=== PATIENT | female | born 1975 | race Caucasian/White ===

== ENCOUNTER 2021-11-11 11:26 | Emergency (ER) | payer BC, SELFPAY ==
--- NOTE | ~2021-11-11 | XR_ITS ---
EXAMINATION: XR chest 1V portable INDICATION: Chest and back pain, COVID 19 positive TECHNIQUE: Portable AP chest at 1221 hours COMPARISON: None available FINDINGS: The lungs are free of acute opacities. No pleural effusion or pneumothorax. The cardiomedia stinal silhouette is normal. The visualized bones and soft tissues are unremarkable. IMPRESSION: 1. No acute cardiopulmonary abnormality. Reviewed, dictated and finalized at location B.
[2021-11-11 11:26] VITALS: BP 148/91; PULSE 88; RESP 16; TEMP 36.3; O2SAT 95
--- NOTE | 2021-11-11 11:49 | ECG_ITS ---
Measurements Intervals [place] Rate: 65 P: 23 RI: 174 QRS: -3 QRSD: 88 T: 17 QT: 381 QTc: 398 Interpretive Statements SINUS RHYTHM NORMAL ECG NO PREVIOUS ECG AVAILABLE FOR COMPARISON Electronically Signed On 11-11-2021 16:12:15 CDT by Bowen Helm M.D.
[2021-11-11 12:00] VITALS: BP 147/99; PULSE 79; RESP 16; O2SAT 98
--- NOTE | 2021-11-11 12:07 | ED.GENADULT ---
HPI - General Adult General Chief complaint: Unspecified Stated complaint: covid+/ left sided flank pain Time Seen by Provider: 11/11/21 11:35 History of Present Illness HPI narrative: 46-year-old female history of Opal's and recently diagnosed with COVID, presents emergency room with mid upper back pain that radiates into her chest. Patient denies any shortness of breath or difficulty breathing. Denies any alleviating or aggravating factors. Denies fever Related Data Home Medications Medication Instructions Recorded Confirmed alprazolam 0.5 mg tablet mg 11/11/21 11/11/21 atorvastatin 20 mg tablet mg 11/11/21 clindamycin 1.2 %(1 %base)-benzoyl topical 11/11/21 peroxide 3.75 % topical gel in pump (Onexton) liothyronine 25 mcg tablet mcg 11/11/21 paroxetine HCl 10 mg tablet mg PO 11/11/21 spironolactone 50 mg tablet mg 11/11/21 tazarotene 0.045 % lotion (Arazlo) topical 11/11/21 Allergies Allergy/AdvReac Type Severity Reaction Status Date / Time latex Allergy Unknown rash Verified 11/11/21 11:32 AMOXICILLIN TRIHYDRATE Allergy Unknown STOMACH Uncoded 11/11/21 11:32 PAIN/VOMITING POTASSIUM CLAVULANATE Allergy Unknown STOMACH Uncoded 11/11/21 11:32 PAIN/VOMITING Review of Systems Review of Systems: CONSTITUTIONAL: Denies fever, chills, or sweats. EYES: Denies visual changes, redness, or discharge. ENT: Denies rhinorrhea, congestion, sore throat, or otalgia. CARDIOVASCULAR: Reports chest pain RESPIRATORY: Denies cough or dyspnea. GASTROINTESTINAL: Denies abdominal pain, nausea, vomiting, or diarrhea. GENITOURINARY: Denies dysuria or hematuria. SKIN: Denies rash or itching. MUSCULOSKELETAL: Reports back pain NEUROLOGIC: Denies headache, numbness, dizziness, or weakness. PSYCHIATRIC: Denies anxiety or depression. Exam Narrative: GENERAL: Well-appearing, well-nourished, no physical limitations, and in no acute distress. HEAD: Normocephalic, atraumatic. EYES: Conjunctivae normal, PERRLA and EOMI. NECK: Supple. No adenopathy or masses. CHEST: Clear to auscultation. No respiratory distress. No wheezes rales or rhonchi. No tenderness. HEART: Regular rate and rhythm. No murmur heard. Normal peripheral pulses. ABDOMEN: Soft, nontender, nondistended, normal active bowel sounds. BACK: No CVA tenderness; No cervical/thoracic/lumbar tenderness, step-offs, bony abnormality; FROM EXTREMITIES: Normal range of motion. No edema. No clubbing or cyanosis SKIN: Warm, dry, no rash. No noted wounds NEURO: No focal deficits. Alert and oriented x3. MAEW. CN's II-XI intact bilaterally, normal gait PSYCH: Cooperative. Normal mood and affect. Course Vital Signs Vital signs: Vital Signs Temperature 36.3 C L 11/11/21 11:26 Pulse Rate 88 11/11/21 11:26 Respiratory Rate 16 11/11/21 11:26 Blood Pressure 148/91 H 11/11/21 11:26 Pulse Oximetry 95 11/11/21 11:26 Temperature 36.3 C L 11/11/21 11:26 Pulse Rate 88 11/11/21 11:26 Respiratory Rate 16 11/11/21 11:26 Blood Pressure 148/91 H 11/11/21 11:26 Pulse Oximetry 95 11/11/21 11:26 Medical Decision Making MDM Narrative Medical decision making narrative: 46-year-old female presented the emergency room complaining of left upper back pain. CBC CMP were unremarkable. Chest x-ray showed no acute cardiopulmonary disease. D-dimer was within normal limits. EKG showed no evidence of active ischemia. Presentation not consistent with acute PE, or infectious process. Heart score was a 1 so we will plan on sending patient home with follow-up with primary care physician Vital Signs Vital Signs: Vital Signs Temperature 36.3 C L 11/11/21 11:26 Pulse Rate 88 11/11/21 11:26 Respiratory Rate 16 11/11/21 11:26 Blood Pressure 148/91 H 11/11/21 11:26 Pulse Oximetry 95 11/11/21 11:26 Temperature 36.3 C L 11/11/21 11:26 Pulse Rate 88 11/11/21 11:26 Respiratory Rate 16 11/11/21 11:26 Blood Pressure 148/91 H
[2021-11-11 12:17] LABS: Basophils Percent Auto 0.4 % (0.2-1.2); Eosinophils Absolute Auto 0.1 K/mm3 (0-0.3); Eosinophils Percent Auto 1.4 % (0-4.4); Hematocrit 39.6 % (37.0-47.0); Hemoglobin 12.8 g/dL (12.0-15.0); Immature Granulocyte Absolute 0.02 K/mm3 (0.00-0.031); Immature Granulocyte Percent A 0.3 % (0-0.5); Lymphocytes Absolute Auto 2.57 K/mm3 (0.9-3.2); Lymphocytes Percent Auto 36.5 % (18.3-44.2); Mean Corpuscular HGB Conc 32.3 g/dl (32-36); Mean Corpuscular Hemoglobin 29.4 pg (26-34); Mean Corpuscular Volume 90.8 fl (80-100); Mean Platelet Volume 9.4 fl (7.4-10.4); Monocytes Absolute Auto 0.8 K/mm3 (0.1-0.6); Monocytes Percent Auto 11.8 % (2.6-8.5); Neutrophils Absolute Auto 3.5 K/mm3 (1.3-6.7); Neutrophils Percent Auto 49.6 % (45.5-73.1); Platelet Count Result 354 k/mm3 (150-375); Red Blood Count 4.36 M/mm3 (4.2-5.4); Red Cell Distribution Width 13.5 % (11.5-14.5); White Blood Count 7.1 K/mm3 (4.5-10.0)
[2021-11-11 12:20] LABS: Appearance Urine Slightly Cloudy (Clear); Bilirubin Urine Negative (Negative); Blood Urine Negative (Negative); Color Urine Yellow (Yellow); Glucose Urine UA Negative (Negative); Ketones Urine Negative (Negative); Leukocyte Esterase Ur Negative LEU/UL (Negative); Nitrate Urine Negative (Negative); Protein Urine Negative (Negative); Urobilinogen Urine 0.2 mg/dL (<2.0); pH Urine 7.5 (5.0-9.0)
[2021-11-11 12:28] LABS: Alanine Aminotransferase 20 U/L (6-35); Albumin Level 4.4 g/dL (3.5-5.1); Alkaline Phosphatase 65 U/L (38-126); Anion Gap 8 mmol/L (8-16); Aspartate Amino Transferase 24 U/L (14-36); Bilirubin,Total 0.3 mg/dL (0.2-1.3); Blood Urea Nitrogen 17 mg/dL (7-17); Calcium 9.3 mg/dL (8.4-10.2); Carbon Dioxide 26 mmol/L (22-30); Chloride 104 mmol/L (98-107); Estimated CRCL calculation 76 ml/min; Estimated Glomerular Filt Rate > 60; Glucose 101 mg/dL (65-110); Potassium 4.1 mmol/L (3.4-5.0); Sodium 138 mmol/L (137-145)
[2021-11-11 12:29] LABS: Add Urine Microscopic? YES; Amorphous Sediment Urine Few; Bacteria Urine Trace /hpf; Mucus Urine Few /lpf; Squamous Epithelial Cell Urine Many /hpf (Few); WBC Urine 0-3 /hpf
[2021-11-11 12:44] LABS: D Dimer < 0.27 ug/mL (<0.48)
[2021-11-11 12:45] VITALS: BP 130/80; PULSE 72; RESP 16; O2SAT 98
[2021-11-11 13:30] VITALS: BP 125/77; PULSE 71; RESP 18; O2SAT 100
== END 2021-11-11 13:35 | disposition home or self-care (01) ==
PROVIDERS: Emergency Provider Nurse Practitioner Family; PCP Family Medicine
DX: M54.6 Pain in thoracic spine (principal); E06.3 Autoimmune thyroiditis; Z86.16 Personal history of COVID-19
CPT/HCPCS: 36415; 71045; 80053; 81001; 81025; 85025; 85380; 93005; 99283

== ENCOUNTER 2024-06-15 11:01 | Outpatient (CLI) | payer BC, SELFPAY ==
--- NOTE | ~2024-06-15 | XR_ITS ---
EXAMINATION: XR_[id number]_CR DATE: 06/15/2024 11:32 INDICATION: Neck pain. TECHNIQUE: 4 views of cervical spine were obtained. COMPARISON: None. FINDINGS: There is 10 degrees levoscoliosis of cervicothoracic spine. Vertebral body heights are norm al. There is moderately decreased disc height at C4-C5 and C5-C6 and mildly decreased disc height at C6-C7. There is multilevel uncovertebral joint osteoarthritis, severe on the right at C4-C5 and bilat erally at C5-C6. At C7-T1, there is moderate to severe facet joint osteoarthritis. There is mild cent ral canal stenosis at C4-C5 and C5-C6. No prevertebral soft tissue swelling. IMPRESSION: 1. Moderate cervical spondylosis. 2. Cervicothoracic levoscoliosis. Reviewed, dictated and finalized at location A.
--- NOTE | ~2024-06-15 | XR_ITS ---
EXAMINATION: XR lumbar spine 2-3V DATE: 06/15/2024 11:32 INDICATION: Low back pain. TECHNIQUE: 3 views of lumbar spine were obtained. COMPARISON: None. FINDINGS: There is 4 degrees levocurvature of thoracolumbar spine. There is mild chronic anterior wed ging of T11-L1 vertebral bodies. Intervertebral disc heights are normal. There are endplate osteophyt es at multiple levels. There is multilevel mild facet joint osteoarthritis. IMPRESSION: 1. Mild lumbar spondylosis. Reviewed, dictated and finalized at location A. IMPRESSION: 1. Mild lumbar spondylosis.
--- NOTE | ~2024-06-15 | XR_ITS ---
EXAMINATION: XR thoracic spine 2V DATE: 06/15/2024 11:32 INDICATION: Mid back pain. TECHNIQUE: 2 views of thoracic spine were obtained. COMPARISON: None. FINDINGS: There is 12 degrees dextroscoliosis of thoracic spine. There is mild chronic anterior wedgi ng of T11 and T12 vertebral bodies. There is mildly decreased disc height at multiple levels in lower thoracic spine. There are endplate osteophytes at many levels. IMPRESSION: 1. Mild thoracic spondylosis. 2. Thoracic dextroscoliosis. Reviewed, dictated and finalized at location A.
--- NOTE | ~2024-06-15 | XR_ITS ---
XR hip BI 2V w AP pelvis 06/15/2024 11:32 Indication: Bilateral hip pain Procedure: AP pelvis 2 views each hip Comparison: No prior studies for comparison. Findings: Pelvic rings are intact. No significant joint space narrowing of the hips. Sacral foramen a re symmetric. No fracture or traumatic malalignment. Impression: 1: No significant bone or joint abnormality. Reviewed, dictated and finalized at location A. Impression: 1: No significant bone or joint abnormality.
== END 2024-06-15 11:02 | disposition home or self-care (01) ==
PROVIDERS: PCP Chiropractor; Visit Provider Chiropractor
DX: M47.892 Other spondylosis, cervical region (principal); M47.894 Other spondylosis, thoracic region; M47.896 Other spondylosis, lumbar region; M25.551 Pain in right hip; M25.552 Pain in left hip
CPT/HCPCS: 72040; 72070; 72100; 73521